=== PATIENT | female | born 1985 | race Caucasian/White ===

== ENCOUNTER 2018-05-11 15:29 | Inpatient (IN) | payer OTHER ==
[~2018-05-11] VITALS: Ht 160 cm; Wt 58.5 kg
[2018-05-11] MEDS ORDERED: PRENATAL VITAM1 EAC2 PO (17:03)
== END 2018-05-13 12:00 | DRG 780 ==
LOC: LDR 15:29 → OB/GYN 15:29
PROC: 4A1HXCZ Monitoring of Products of Conception, Cardiac Rate, External Approach (ICD-10-PCS; principal; 2018-05-11)
DX: O47.03 False labor before 37 completed weeks of gestation, third trimester (principal)

== ENCOUNTER 2018-07-16 16:06 | Inpatient (IN) | payer OTHER ==
[~2018-07-16] VITALS: Ht 157.5 cm; Wt 59.4 kg
[~2018-07-16 16:06] MED LIST: PRENATAL VITAM1 EAC2 PO
[2018-07-16] MEDS ORDERED: FLONASE16 GM NASAL (19:58)
== END 2018-07-18 11:31 | disposition home or self-care (01) | DRG 775 ==
LOC: LDR 16:06 → OB/GYN 16:25
PROC: 0UQGXZZ Repair Vagina, External Approach (ICD-10-PCS; principal; 2018-07-16)
PROC: 10E0XZZ Delivery of Products of Conception, External Approach (ICD-10-PCS; 2018-07-16)
PROC: 4A1HXCZ Monitoring of Products of Conception, Cardiac Rate, External Approach (ICD-10-PCS; 2018-07-16)
DX: O71.4 Obstetric high vaginal laceration alone (principal); Z3A.40 40 weeks gestation of pregnancy; Z37.0 Single live birth